=== PATIENT | male | born 1945 | race Caucasian/White ===

== ENCOUNTER → 2017-11-28 | Day surgery (SDC) | payer MEDICARE, OTHER ==
[~2017-11-28] MED LIST: B COMPLEX VIT PO; FENTANYL CITRATE/PF 100MCG/2 ML INJ ONE; FERROUS SULFAT325 MG PO; FISH OIL 1,0001 EAC2 PO; GLUCOSAMIN-CHO1 EACH PO; IBUPROFEN200 MG PO; LEVOTHYROXINE50 MCG PO; LIPITOR20 MG PO; METOPROLOL TART25 MG PO; MIDAZOLAM HCL 2 MG/2 ML VIAL ONE; MULTI-VITAMIN1 EACH PO; OR PHACO EYE KIT ONE; PREOP PHACO EYE KIT ONE; TURMERIC1 GM PO; VIT C PO; VIT D PO; VIT E PO
== END | disposition home or self-care (01) ==
LOC: OR 11:55
PROVIDERS: ATTEND Ophthalmology
DX: H25.11 Age-related nuclear cataract, right eye (principal); E55.9 Vitamin D deficiency, unspecified; E03.9 Hypothyroidism, unspecified; D22.5 Melanocytic nevi of trunk; R06.83 Snoring; D64.9 Anemia, unspecified; Z68.31 Body mass index [BMI] 31.0-31.9, adult
CPT/HCPCS: 66984; J2250; V2788

== ENCOUNTER → 2017-12-12 | Day surgery (SDC) | payer MEDICARE, OTHER ==
[~2017-12-12] MED LIST changes: -OR PHACO EYE KIT ONE; -PREOP PHACO EYE KIT ONE
== END | disposition home or self-care (01) ==
LOC: OR 11:33
PROVIDERS: ATTEND Ophthalmology
DX: H25.12 Age-related nuclear cataract, left eye (principal); E78.00 Pure hypercholesterolemia, unspecified; N18.3 Chronic kidney disease, stage 3 (moderate); E55.9 Vitamin D deficiency, unspecified; D22.5 Melanocytic nevi of trunk; Z85.820 Personal history of malignant melanoma of skin
CPT/HCPCS: 66984; J2250